=== PATIENT | male | born 1960 | race African-American/Black ===

== ENCOUNTER 2022-01-21 15:07 | Emergency (ER) | payer OTHER ==
[2022-01-21 15:16] VITALS: BP 157/80; PULSE 84; TEMP 98.2; BMI 29.0
[2022-01-21] MEDS ORDERED: IBUPROFEN 600 MG TABLET (FP) PO ONE ×2 (17:54)
[2022-01-21] MEDS ORDERED: AMOX TR/POT CLAV 500MG/125MG TABLETS (FP) ONE (17:54)
== END 2022-01-21 18:04 | disposition home or self-care (01) ==
LOC: JERFT 15:07
DX: K08.89 Other specified disorders of teeth and supporting structures (principal)
CPT/HCPCS: 99283-25; 99284-25